=== PATIENT | female | born 1950 | race Two or more races ===

== ENCOUNTER → 2018-03-10 | Outpatient (CLI) | payer OTHER, MEDICAID ==
[~2018-03-10] MED LIST: ASPI-630 PO; LISI10TA2 PO; METF500T16 PO; NAPR-514 PO
[2018-03-10 13:03] LABS: BASO # 0.1 x10^3/uL (0.0-0.2); BASO % 1 % (0-3); EOS # 0.1 x10^3/uL (0.0-0.7); EOS % 2 % (0-3); HEMATOCRIT 38.7 % (36.0-47.0); HEMOGLOBIN 12.9 g/dL (12.0-15.5); LYMPH # 2.1 x10^3/uL (1.0-4.8); LYMPH % 24 % (24-48); MEAN CORPUSCULAR HEMOGLOBIN 28 pg (25-35); MEAN CORPUSCULAR HGB CONC 33 g/dL (31-37); MEAN CORPUSCULAR VOLUME 83 fL (79-100); MONO # 0.4 x10^3/uL (0.0-1.1); MONO % 5 % (0-9); NEUT # 6.2 x10^3uL (1.8-7.7); NEUT % 70 % (31-73); PLATELET COUNT 362 x10^3/uL (140-400); RED BLOOD COUNT 4.67 x10^6/uL (3.50-5.40); RED CELL DISTRIBUTION WIDTH 15.3 % (11.5-14.5); WHITE BLOOD COUNT 8.8 x10^3/uL (4.0-11.0)
[2018-03-10 13:04] LABS: BILIRUBIN,URINE NEGATIVE (NEG); CLARITY,URINE CLEAR; COLOR,URINE YELLOW; NITRITE,URINE NEGATIVE (NEG); PROTEIN,URINE NEGATIVE (NEG-TRACE); UROBILINOGEN,URINE 0.2 mg/dL (0.2 mg/dL)
[2018-03-10 13:10] LABS: RBC,URINE 0 /HPF (0-2)
[2018-03-10 13:11] LABS: BACTERIA,URINE FEW /HPF (0-FEW); WBC,URINE OCC /HPF (0-4)
[2018-03-10 13:12] LABS: PROTHROMBIN TIME PATIENT 12.6 SEC (11.7-14.0)
[2018-03-10 13:14] LABS: ALBUMIN 3.8 g/dL (3.4-5.0); CALCIUM 8.9 mg/dL (8.5-10.1); CREATININE 0.7 mg/dL (0.6-1.0); GFR 83.5; POTASSIUM 4.2 mmol/L (3.5-5.1)
--- NOTE | 2018-03-10 13:21 | EKG ---
[facility] [address] [place] [address] Test Date: 2018-03-10 Test Time: 12:27:16 Pat Name: RAFAELA JAMES Department: Room: Gender: F [employer] Controller: ABDIRAHMANShania : 1950 Requested By: SB PARTIDA Order Number: [id number] Reading MD: Leandro Mahmood Measurements Intervals [place] Rate: 65 P: 25 NE: 158 QRS: 15 QRSD: 74 T: 57 QT: 402 QTc: 419 Interpretive Statements SINUS RHYTHM NONSPECIFIC ST-T WAVE CHANGES. RI6.01 No previous ECG available for comparison Electronically Signed On 03-15-2018 16:20:54 CDT by Leandro Mahmood
--- NOTE | 2018-03-10 14:36 | RAD ---
Chest, 2 views, 03/10/2018: HISTORY: Preop evaluation for knee surgery The heart is at the upper limits of normal in size. The pulmonary vascularity is normal. No pulmonary infiltrate is seen. There is no evidence of pleural fluid. Moderate multilevel degenerative change is present in the spine. IMPRESSION: 1. Borderline cardiomegaly. 2. No acute abnormality is detected. Electronically signed by: Jarett Brian MD (03/10/2018 2:33 PM) [facility]
[2018-03-11 03:16] LABS: HEMOGLOBIN A1C 5.6 % (4.8-5.6)
== END | disposition home or self-care (01) ==
LOC: SURGPAT 12:11
PROVIDERS: ATTEND Orthopaedic Surgery Sports Medicine
DX: Z01.818 Encounter for other preprocedural examination (principal); M17.11 Unilateral primary osteoarthritis, right knee; M47.894 Other spondylosis, thoracic region
CPT/HCPCS: 36415; 71046; 80048; 81001; 82040; 83036; 85025; 85610; 85651; 85730; 87641; 93005

== ENCOUNTER 2018-03-22 07:30 | Inpatient (IN) | payer OTHER, MEDICAID ==
[~2018-03-22] VITALS: Ht 160 cm; Wt 91.6 kg
[2018-04-26] VITALS (8 sets, daily range): BP systolic 103–138; BP diastolic 64–81
[2018-04-26] MEDS ORDERED: TRANEXAMIC ACID 1,000 MG in IV NS 50ML -- 1ST BAG INJ ONE (06:00)
[2018-04-26] MEDS ORDERED: ACETAMINOPHEN 500 MG TABLET PO PRN (06:00)
[2018-04-26] MEDS ORDERED: TV=100ml MORPHINE 5 MG, KETOROLAC 30 MG, ROPIVacaine 0.5% PF 60 ML, EPINEPH... INT ART ONE ×5 (06:00)
[2018-04-26] MEDS ORDERED: HYDROcodone/APAP 7.5/325MG 1 TAB TABLET PO PRN ×2 (06:00→07:15)
[2018-04-26] MEDS ORDERED: MELOXICAM 7.5 MG TABLET PO PRN (06:00)
[2018-04-26] MEDS: IV RINGERS,LACTATED 1000ML 1,000 ML IV SCH ×2 (06:51→10:00)
[2018-04-26 06:56] LABS: PROTHROMBIN TIME PATIENT 12.8 SEC (11.7-14.0)
[2018-04-26] MEDS ORDERED: HYDROmorphone 2 MG/ML VIAL IV PRN (07:00)
[2018-04-26] MEDS ORDERED: ONDANSETRON PF 4 MG/2 ML VIAL. IV PRN (07:00)
[2018-04-26] MEDS ORDERED: fentaNYL PF VIAL 100 MCG/2 ML VIAL IV PRN ×5 (07:00→07:15)
[2018-04-26] MEDS ORDERED: MORPHINE SULFATE 2 MG/ML VIAL. IV PRN ×3 (07:00→07:15)
[2018-04-26] MEDS ORDERED: LIDOCAINE 1% PF 2 ML VIAL. ID PRN (07:00)
[2018-04-26] MEDS ORDERED: IV DEXTROSE 5 %-0.45 % NACL 1,000 ML IV SCH (07:02)
[2018-04-26] MEDS ORDERED: 0.9 % SODIUM CHLORIDE 10 ML DISP.SYRIN. IV PRN ×2 (07:15)
[2018-04-26] MEDS ORDERED: traMADol 50 MG TABLET PO PRN ×4 (07:15)
[2018-04-26] MEDS ORDERED: oxyCODONE/APAP 5/325 1 TAB TABLET PO PRN ×2 (07:15)
[2018-04-26] MEDS ORDERED: oxyCODONE/APAP 7.5/325 1 TAB TABLET PO PRN ×2 (07:15)
[2018-04-26] MEDS ORDERED: DEXTROSE 50% 25 GM / 50ML DISP.SYRIN. IV PRN ×3 (07:15)
[2018-04-26] MEDS ORDERED: PROCHLORPERAZINE 10 MG/2 ML VIAL. IV PRN ×2 (07:15)
[2018-04-26] MEDS ORDERED: ZOLPIDEM 5 MG TABLET. PO PRN ×2 (07:15)
[2018-04-26] MEDS ORDERED: diphenhydrAMINE 50 MG/ML VIAL IV PRN (07:15)
[2018-04-26] MEDS ORDERED: METOCLOPRAMIDE HCL 10 MG/2 ML VIAL. IV PRN ×2 (07:15)
[2018-04-26] MEDS ORDERED: MORPHINE SULFATE 10 MG/ML VIAL. IV PRN ×2 (07:15)
[2018-04-26] MEDS ORDERED: CALCIUM CARBONATE 500 MG TAB.CHEW PO PRN ×2 (07:15)
[2018-04-26] MEDS ORDERED: PROCHLORPERAZINE 5 MG TABLET. PO PRN ×2 (07:15)
[2018-04-26] MEDS ORDERED: MORPHINE SULFATE 4 MG/ML VIAL. IV PRN ×4 (07:15)
[2018-04-26] MEDS ORDERED: ACETAMINOPHEN 325 MG TABLET. PO PRN ×2 (07:15)
[2018-04-26] MEDS ORDERED: HYDROcodone/APAP 10/325 1 TAB TABLET PO PRN ×2 (07:15)
[2018-04-26] MEDS ORDERED: PROPOFOL 20 ML IV ONE (07:17)
[2018-04-26] MEDS ORDERED: LIDOCAINE 2% PF Vial for OR 5 ML VIAL. ONE (07:17)
[2018-04-26] MEDS ORDERED: MIDAZOLAM HCL/PF 2 MG/2 ML VIAL. ONE (07:17)
[2018-04-26] MEDS ORDERED: fentaNYL PF VIAL 250 MCG/5 ML VIAL ONE (07:17)
[2018-04-26 07:37] LABS: BILIRUBIN,URINE NEGATIVE (NEG); CLARITY,URINE CLOUDY; COLOR,URINE YELLOW; NITRITE,URINE NEGATIVE (NEG); PROTEIN,URINE NEGATIVE (NEG-TRACE)
[2018-04-26] MEDS ORDERED: SUCCINYLCHOLINE 200 MG/10 ML VIAL. ONE (07:37)
[2018-04-26 07:48] LABS: SQUAMOUS EPITHELIAL CELL,UR FEW /LPF
[2018-04-26 07:58] LABS: BACTERIA,URINE FEW /HPF (0-FEW); RBC,URINE OCC /HPF (0-2)
[2018-04-26] MEDS ORDERED: TRANEXAMIC ACID 1,000 MG in IV NS 50ML -- 2ND BAG INJ ONE (08:00)
[2018-04-26] MEDS ORDERED: FERROUS SULFATE 325 MG TABLET. PO SCH (08:00)
[2018-04-26] MEDS: INSULIN LISPRO 300 UNITS/3 ML INSULN.PEN. SQ SCH ×3 (08:00→16:59)
[2018-04-26] MEDS: SENNOSIDES/DOCUSATE 8.6/50MG TABLET. PO SCH (09:00)
[2018-04-26] MEDS ORDERED: SENNOSIDES/DOCUSATE 8.6/50MG TABLET. PO SCH (09:00)
[2018-04-26] MEDS: LISINOPRIL 10 MG TABLET PO SCH (09:00)
[2018-04-26] MEDS: MULTIVITAMIN with MINERAL TABLET. PO SCH (09:00)
[2018-04-26] MEDS ORDERED: MULTIVITAMIN with MINERAL TABLET. PO SCH (09:00)
[2018-04-26] MEDS ORDERED: SEVOFLURANE > 120 MINUTES. IH ONE (09:18)
[2018-04-26] MEDS ORDERED: DEXAMETHASONE SOD PHOS 20 MG/5 ML VIAL. ONE (09:18)
[2018-04-26] MEDS ORDERED: SEVOFLURANE 61 TO 120 MINUTES. IH ONE (09:18)
[2018-04-26] MEDS ORDERED: ONDANSETRON PF 4 MG/2 ML VIAL. ONE (09:18)
--- NOTE | 2018-04-26 09:42 | PDOC4 ---
Operative Note Operative Note Date of procedure: 04/26/2018 Surgeon: Uday Flores.: Ab Douglas APRN Preoperative diagnosis: Advanced right knee primary degenerative joint disease Postoperative diagnosis: Same Procedure performed: Right total knee arthroplasty Anesthesia: Gen. Tourniquet time: 52 minutes Blood loss: 100 mL Findings: Advanced primary degenerative joint disease of right knee Complications: None Components inserted: Peres and nephew size 5 bicruciate stabilized journey II cobalt chrome femur, size 3 tibial baseplate, 23 biconvex patella, 9 mm polyethylene insert Reason for procedure: Patient is very pleasant 67-year-old female who had tried and failed intra-articular injections, anti-inflammatories, and an assistive device as well as a rehabilitation program to alleviate her severe progressive right knee pain. We had a discussion of the risks, benefits, and alternatives with her family and they wish proceed with total knee arthroplasty. Description of procedure: Patient was greeted in the preoperative area by myself for the correct extremity was verified and marked. She was taken back to the operating room and her antibiotics were started as she was brought back. Once the operating room she was transferred gently supine to the operative room table and secured the bed with all pressure points padded after successful induction of a general anesthetic. Examination under anesthesia demonstrated needle stable to varus and valgus in extension and 30 of flexion. Range of motion was 0-130. Nonsterile tourniquet was applied and taped in place to her right thigh. Padded bump laterally at her hip and padded rest across the foot of the bed for her foot were attached to maintain her knee in 90 passively. Right lower extremity was then prepped and draped in our usual sterile fashion and we conducted our standard preoperative timeout. After this, I outpatient and marked surface anatomy and linda a line for my planned anterior midline skin incision. It should be noted an Ioban Chatham was used for this case as is my routine. After this, extremity exsanguinated with an Esmarch and tourniquet insufflated to 250 mmHg. Skin was incised a scalpel and subcutaneous tissue dissected with electrocautery. Bleeders were cauterized as a were encountered. Identified the quadriceps tendon, borders of the patella and patellar tendon as well as tibial tubercle. I made my standard medial parapatellar arthrotomy and then bluntly dissected the fat pad off the posterior patellar tendon and protected this while excised the fat pad. Medial release was performed with combination of Giraldo and electrocautery to approximately mid coronal plane. After this, the knee was flexed and I placed my Z retractors. I marked the Whitesides line and the epicondylar axis. I took down the cruciate ligaments. I gain entry into the distal femur with the drill, decompressing is entered. After this, I introduce my long intramedullary guide and impacted my distal femoral cutting block into position and secured it with 3 pins. I then made my distal femoral cut and removed the bony debris from the operative field. I then sized for my femur and then placed the pinholes to dileep the rotation for 51 cutting block and then impacted this into position and secured with threaded pins and then made my distal femoral cuts. The cutting block was removed as was the loose bony debris. I used the curved osteotome to palpate posteriorly to make sure I removed osteophytes there. After this, I placed my pickle fork retractor. I repositioned my Z retractors and then using the extra medullary tibial cutting guide and pinned this into place and then made my proximal tibial cut and deliver this bony remnant from the operative field. The retractors and extra medullary guide removed and the leg was brought out into extension. The menisci were excised, leaving a rim peripherally for later identification. After this, spacer block and drop ai confirmed good alignment and full extension. The knee was then flexed again and retractors positioned appropriately. I then sized and pinned my baseplate into position and then drilled and punched for the fins. I then placed my trial femoral component and then pinned this into place and then reamed and punched for the cam portion. The pin was removed and the trial box was inserted. A 9 mm and 10 mm articular insert were trialed, the 10 was a little too tight. She had full range of motion , 0-140 in the knee that was stable in extension and mid flexion with the 9 mm articular insert in place. I then directed my attention to the patella and sized and reamed for the 23 biconvex patella. She had excellent patellar tracking with all trial components in place. All trial components were then removed and the bony surfaces thoroughly irrigated. I then impacted my tibial component in place followed by my femur. Care was taken remove excess cement. Trial polyethylene was inserted and the cement was allowed to polymerize with the leg in extension. The patellar button was clamped and secured in place with cement as well. I then injected my periarticular mixture into the alonzo- incisional soft tissue envelope. After the cement was polymerize, I tested range of motion and stability again and was happy with it. The trial polyethylene articular insert was removed, the operative field was thoroughly irrigated again. After this, the 9 mm thick articular insert was inserted and locked in position, confirming that it was fully seated under direct visualization. Tourniquet was let down and bleeders were cauterized. She had a fair amount of oozing and so I placed a 1/8 inch Hemovac exiting superolaterally from her knee. Arthrotomy was closed with simple interrupted #1 Vicryl with the exception of a [id number]-abwhi proximally. Inverted interrupted 2-0 Vicryl in a multilayered fashion was used for closing subcutaneous tissue after arthrotomy closure was tested in flexion and no extravasation of blood noted. Running 4-0 Monocryl in a buried subcuticular fashion was used for skin. All counts correct 2 prior to wound closure. No complications. The leg was cleansed and dried and our incisional wound VAC was applied. Royer wrap was then applied. Patient tolerated surgery well. At the conclusion of surgery, she was awakened from anesthesia an transferred gently supine to the hospital bed. She was taken to the PACU in a stable and extubated condition. Postoperative plan is admit her to the joint center for DVT and antibiotic prophylaxis as well as begin her rehabilitation. UDAY PARTIDA II, MD Apr 26, 2018 09:42
[2018-04-26] MEDS: PROCHLORPERAZINE 10 MG/2 ML VIAL. IV PRN ×2 (10:22→10:52)
[2018-04-26] MEDS: fentaNYL PF VIAL 100 MCG/2 ML VIAL IV PRN ×3 (10:29→15:29)
--- NOTE | 2018-04-26 10:38 | RAD ---
Two-view right knee dated 04/26/2018. Comparison made to October 29, 2017. Clinical data indication: Post knee arthroplasty. FINDINGS: 2 views right knee show interval total knee of arthroplasty. Femoral and tibial components are intact. No periprosthetic fracture or malalignment. There are postsurgical changes of the patella. Diffuse soft tissue swelling and soft tissue gas with suprapatellar drain in place. IMPRESSION: Status post right knee arthroplasty. Electronically signed by: Gary Agrawal MD (04/26/2018 10:35 AM) [facility]
[2018-04-26] MEDS ORDERED: SCOPOLAMINE 1.5MG PATCH. TD SCH (11:15)
[2018-04-26] MEDS: IV DEXTROSE 5 %-0.45 % NACL 1,000 ML IV SCH ×2 (11:35→21:30)
[2018-04-26] MEDS: KETOROLAC 30MG VIAL 30 MG, BUPIVACAINE MPF 0.25% 20 ML, EPINEPHrine 0.5 MG in TOTAL VOL... INT ART SCH (12:07)
[2018-04-26] MEDS: WARFARIN 7.5 MG TABLET. PO ONE ×2 (15:28→21:05)
[2018-04-26] MEDS ORDERED: WARFARIN 7.5 MG TABLET. PO ONE (16:00)
[2018-04-26] MEDS: FERROUS SULFATE 325 MG TABLET. PO SCH (17:00)
[2018-04-26] MEDS ORDERED: KETOROLAC 30MG VIAL 30 MG, BUPIVACAINE MPF 0.25% 20 ML, EPINEPHrine 0.5 MG in TOTAL VOL... INT ART SCH (18:00)
[2018-04-26] MEDS ORDERED: CELECOXIB 100 MG CAPSULE. PO SCH (21:00)
[2018-04-26] MEDS: CELECOXIB 100 MG CAPSULE. PO SCH (21:05)
[2018-04-26] MEDS: metFORMIN 500 MG TABLET PO SCH (21:05)
[2018-04-26] MEDS: HYDROcodone/APAP 7.5/325MG 1 TAB TABLET PO PRN (21:31)
[2018-04-27] MEDS: IV DEXTROSE 5 %-0.45 % NACL 1,000 ML IV SCH (03:02)
[2018-04-27 03:09] VITALS: BP 111/70
[2018-04-27 05:20] LABS: HEMATOCRIT 30.1 % (36.0-47.0); HEMOGLOBIN 10.1 g/dL (12.0-15.5)
[2018-04-27 05:31] LABS: PROTHROMBIN TIME PATIENT 15.2 SEC (11.7-14.0)
[2018-04-27] MEDS ORDERED: MAGNESIUM HYDROXIDE 2,400 MG/30 ML ORAL.SUSP. PO PRN ×2 (06:00)
[2018-04-27] MEDS: KETOROLAC 30MG VIAL 30 MG, BUPIVACAINE MPF 0.25% 20 ML, EPINEPHrine 0.5 MG in TOTAL VOL... INT ART SCH (06:00)
[2018-04-27 07:05] VITALS: BP 124/73
[2018-04-27] MEDS: INSULIN LISPRO 300 UNITS/3 ML INSULN.PEN. SQ SCH ×3 (08:00→16:58)
[2018-04-27] MEDS: metFORMIN 500 MG TABLET PO SCH ×2 (08:01→16:56)
[2018-04-27] MEDS: FERROUS SULFATE 325 MG TABLET. PO SCH ×2 (08:01→16:56)
[2018-04-27] MEDS: CELECOXIB 100 MG CAPSULE. PO SCH ×2 (08:02→21:21)
[2018-04-27] MEDS: SENNOSIDES/DOCUSATE 8.6/50MG TABLET. PO SCH (08:02)
[2018-04-27] MEDS: MULTIVITAMIN with MINERAL TABLET. PO SCH (08:02)
[2018-04-27] MEDS: LISINOPRIL 10 MG TABLET PO SCH (08:03)
[2018-04-27] MEDS: HYDROcodone/APAP 7.5/325MG 1 TAB TABLET PO PRN ×2 (12:38→20:26)
--- NOTE | 2018-04-27 13:10 | PDOC ---
ORTHO PROGRESS NOTES Subjective She had a lot of nausea yesterday after surgery. It is getting better. She has been able to keep some food down. She has been ambulating and participating in PT. Vitals Vital Signs Date Time Temp Pulse Resp B/P (MAP) Pulse Ox O2 Delivery O2 Flow Rate FiO2 04/27/18 12:38 Nasal Cannula 04/27/18 08:03 62 124/73 04/27/18 07:05 98.4 16 96 98.4 04/26/18 20:12 2.0 Labs Laboratory Tests Test 04/26/18 06:35 04/26/18 06:44 04/26/18 07:10 04/26/18 10:40 Prothrombin Time 12.8 SEC (11.7-14.0) Prothromb Time International Ratio 1.0 (0.8-1.1) Activated Partial Thromboplast Time 27 SEC (24-38) Glucose (Fingerstick) 94 mg/dL (70-99) 156 mg/dL (70-99) Urine Collection Type Unknown Urine Color Yellow Urine Clarity Cloudy Urine pH 7.0 Urine Specific Deary 1.025 Urine Protein Negative mg/dL (NEG-TRACE) Urine Glucose (UA) Negative mg/dL (NEG) Urine Ketones (Stick) Negative mg/dL (NEG) Urine Blood Negative (NEG) Urine Nitrite Negative (NEG) Urine Bilirubin Negative (NEG) Urine Urobilinogen Dipstick 1.0 mg/dL (0.2 mg/dL) Urine Leukocyte Esterase Small (NEG) Urine RBC Occ /HPF (0-2) Urine WBC 1-4 /HPF (0-4) Urine Squamous Epithelial Cells Few /LPF Urine Bacteria Few /HPF (0-FEW) Urine Mucus Mod /LPF Test 04/26/18 21:03 04/27/18 04:50 04/27/18 06:36 04/27/18 10:47 Glucose (Fingerstick) 172 mg/dL (70-99) 111 mg/dL (70-99) 74 mg/dL (70-99) Hemoglobin 10.1 g/dL (12.0-15.5) Hematocrit 30.1 % (36.0-47.0) Mean Corpuscular Hemoglobin Concent 34 g/dL (31-37) Prothrombin Time 15.2 SEC (11.7-14.0) Prothromb Time International Ratio 1.3 (0.8-1.1) Laboratory Tests Test 04/26/18 21:03 04/27/18 04:50 04/27/18 06:36 04/27/18 10:47 Glucose (Fingerstick) 172 mg/dL (70-99) 111 mg/dL (70-99) 74 mg/dL (70-99) Hemoglobin 10.1 g/dL (12.0-15.5) Hematocrit 30.1 % (36.0-47.0) Mean Corpuscular Hemoglobin Concent 34 g/dL (31-37) Prothrombin Time 15.2 SEC (11.7-14.0) Prothromb Time International Ratio 1.3 (0.8-1.1) Notes She is awake and alert. Dressing is intact. Normal motor and sensation are present in her right lower extremity Assessment and Plan PT and OT, continue Coumadin, weight-bear as tolerated. Anti-nausea medications have been ordered. SB PARTIDA II, MD Apr 27, 2018 13:10
[2018-04-27] MEDS ORDERED: BISACODYL 10 MG SUPP.RECT. PR PRN ×2 (16:00)
[2018-04-27] MEDS ORDERED: WARFARIN 5 MG TABLET. PO ONE (16:00)
[2018-04-27 18:04] VITALS: BP 113/55
[2018-04-28 04:32] LABS: HEMATOCRIT 29.4 % (36.0-47.0); HEMOGLOBIN 9.7 g/dL (12.0-15.5)
[2018-04-28 04:45] LABS: PROTHROMBIN TIME PATIENT 18.5 SEC (11.7-14.0)
[2018-04-28 06:35] VITALS: BP 102/68
--- NOTE | 2018-04-28 07:44 | PDOC ---
ORTHO PROGRESS NOTES Subjective Patient with no new complaints this morning. Sitting up in chair at bedside. Post-op Day: 2 Procedure RTKA Vitals Vital Signs Date Time Temp Pulse Resp B/P (MAP) Pulse Ox O2 Delivery O2 Flow Rate FiO2 04/28/18 06:35 98.3 66 16 102/68 (79) 93 Room Air 98.3 Labs Laboratory Tests Test 04/26/18 10:40 04/26/18 21:03 04/27/18 04:50 04/27/18 06:36 Glucose (Fingerstick) 156 mg/dL (70-99) 172 mg/dL (70-99) 111 mg/dL (70-99) Hemoglobin 10.1 g/dL (12.0-15.5) Hematocrit 30.1 % (36.0-47.0) Mean Corpuscular Hemoglobin Concent 34 g/dL (31-37) Prothrombin Time 15.2 SEC (11.7-14.0) Prothromb Time International Ratio 1.3 (0.8-1.1) Test 04/27/18 10:47 04/27/18 16:41 04/27/18 20:54 04/28/18 04:05 Glucose (Fingerstick) 74 mg/dL (70-99) 94 mg/dL (70-99) 106 mg/dL (70-99) Hemoglobin 9.7 g/dL (12.0-15.5) Hematocrit 29.4 % (36.0-47.0) Mean Corpuscular Hemoglobin Concent 33 g/dL (31-37) Prothrombin Time 18.5 SEC (11.7-14.0) Prothromb Time International Ratio 1.6 (0.8-1.1) Test 04/28/18 06:23 Glucose (Fingerstick) 92 mg/dL (70-99) Laboratory Tests Test 04/27/18 10:47 04/27/18 16:41 04/27/18 20:54 04/28/18 04:05 Glucose (Fingerstick) 74 mg/dL (70-99) 94 mg/dL (70-99) 106 mg/dL (70-99) Hemoglobin 9.7 g/dL (12.0-15.5) Hematocrit 29.4 % (36.0-47.0) Mean Corpuscular Hemoglobin Concent 33 g/dL (31-37) Prothrombin Time 18.5 SEC (11.7-14.0) Prothromb Time International Ratio 1.6 (0.8-1.1) Test 04/28/18 06:23 Glucose (Fingerstick) 92 mg/dL (70-99) Assessment and Plan N/V intact distally dressing dry and intact moving toes and feet on request continue progression with PT FAYE PUENTE APRN Apr 28, 2018 07:44
[2018-04-28] MEDS: metFORMIN 500 MG TABLET PO SCH ×2 (08:00→17:00)
[2018-04-28] MEDS: INSULIN LISPRO 300 UNITS/3 ML INSULN.PEN. SQ SCH ×3 (08:00→17:00)
[2018-04-28 08:20] VITALS: BP 121/70
[2018-04-28] MEDS: FERROUS SULFATE 325 MG TABLET. PO SCH ×2 (08:23→16:59)
[2018-04-28] MEDS: SENNOSIDES/DOCUSATE 8.6/50MG TABLET. PO SCH (08:24)
[2018-04-28] MEDS: MULTIVITAMIN with MINERAL TABLET. PO SCH (08:24)
[2018-04-28] MEDS: CELECOXIB 100 MG CAPSULE. PO SCH ×2 (08:24→20:54)
[2018-04-28] MEDS: HYDROcodone/APAP 7.5/325MG 1 TAB TABLET PO PRN ×3 (08:25→20:55)
[2018-04-28] MEDS: LISINOPRIL 10 MG TABLET PO SCH (08:29)
[2018-04-28] MEDS ORDERED: WARFARIN 3 MG TABLET. PO ONE (16:00)
--- NOTE | 2018-04-28 16:12 | PATHOLOGY ---
[facility] Accession Number: [id number] . 01 Material submitted: . RIGHT KNEE BONE . 01 Clinical history: . Knee pain . 02 Diagnosis: Segments of bone and soft tissue, right total knee arthroplasty: - Advanced degenerative arthritis. . (JPM:vjm;04/28/2018) [facility]/04/28/2018 . 02 Electronically signed: . Bala Pool MD, Pathologist NPI- [id number] . 01 Gross description: . Received in formalin labeled "Shyann Saini, right knee bone," are multiple segments of bone, including tibial plateau, measuring 12.4 x 8.4 x 1.6 cm in aggregate dimensions. Scant soft tissue and possible meniscus are present. The specimen displays focal eburnation of the articular surfaces. Field Underwriter bone and soft tissue are submitted in cassette A1, following decalcification. (DAC; 04/27/2018) XDC/XDC . 02 Pathologist provided ICD-10: M17.11 . 02 CPT . 189366, 126415 Specimen Comment: A courtesy copy of this report has been sent to Specimen Comment: [phone], . Specimen Comment: Report sent to / DR CARRILLO Performed at: 01 [facility] [address] [facility] [place], [place] [id number] MD Mando Joyce MD Phone: [phone] Performed at: 02 [facility] [address] [place], [place] [id number] MD Bala Pool MD Phone: [phone]
[2018-04-28 18:15] VITALS: BP 115/66
[2018-04-29 04:54] LABS: HEMATOCRIT 30.2 % (36.0-47.0); HEMOGLOBIN 10.1 g/dL (12.0-15.5)
[2018-04-29] MEDS: HYDROcodone/APAP 7.5/325MG 1 TAB TABLET PO PRN ×3 (05:45→19:27)
[2018-04-29 05:51] VITALS: BP 123/58
[2018-04-29] MEDS: INSULIN LISPRO 300 UNITS/3 ML INSULN.PEN. SQ SCH ×3 (08:00→16:45)
[2018-04-29] MEDS: MULTIVITAMIN with MINERAL TABLET. PO SCH (08:11)
[2018-04-29] MEDS: FERROUS SULFATE 325 MG TABLET. PO SCH ×2 (08:11→16:44)
[2018-04-29] MEDS: metFORMIN 500 MG TABLET PO SCH ×2 (08:11→16:43)
[2018-04-29] MEDS: SENNOSIDES/DOCUSATE 8.6/50MG TABLET. PO SCH (08:12)
[2018-04-29] MEDS: CELECOXIB 100 MG CAPSULE. PO SCH ×2 (08:12→21:03)
[2018-04-29] MEDS: LISINOPRIL 10 MG TABLET PO SCH (09:00)
--- NOTE | 2018-04-29 09:09 | DISCH ---
DISCHARGE INSTRUCTIONS Condition on Discharge Condition on Discharge: Stable Activity After Discharge Activity Instructions for Disc: Other ROM activity Bathing Instructions: Shower-keep dressing dry Weight Bearing Status after Di: As tolerated Diet after Discharge Diet after Discharge: Regular Wound Incision Care Wound/Incision Care: Ice to area for comfort, Keep wound/cast CDI, Do not change dressing Contacting the DRJanki after DC Call your doctor for: Concerns you may have Follow-Up Follow up with: [facility] in 2 wks Warfarin Follow-Up Warfarin Follow UP: per pharmacy SB PARTIDA II, MD Apr 29, 2018 09:09
--- NOTE | 2018-04-29 09:20 | PDOC ---
ORTHO PROGRESS NOTES Subjective Pain tolerable, eye redness. Abd ok Vitals Vital Signs Date Time Temp Pulse Resp B/P (MAP) Pulse Ox O2 Delivery O2 Flow Rate FiO2 04/29/18 06:45 Room Air 04/29/18 05:51 98.0 70 20 123/58 (79) 95 98.0 Labs Laboratory Tests Test 04/27/18 10:47 04/27/18 16:41 04/27/18 20:54 04/28/18 04:05 Glucose (Fingerstick) 74 mg/dL (70-99) 94 mg/dL (70-99) 106 mg/dL (70-99) Hemoglobin 9.7 g/dL (12.0-15.5) Hematocrit 29.4 % (36.0-47.0) Mean Corpuscular Hemoglobin Concent 33 g/dL (31-37) Prothrombin Time 18.5 SEC (11.7-14.0) Prothromb Time International Ratio 1.6 (0.8-1.1) Test 04/28/18 06:23 04/28/18 11:31 04/28/18 16:22 04/29/18 04:35 Glucose (Fingerstick) 92 mg/dL (70-99) 96 mg/dL (70-99) 112 mg/dL (70-99) Hemoglobin 10.1 g/dL (12.0-15.5) Hematocrit 30.2 % (36.0-47.0) Mean Corpuscular Hemoglobin Concent 34 g/dL (31-37) Prothrombin Time 17.0 SEC (11.7-14.0) Prothromb Time International Ratio 1.4 (0.8-1.1) Test 04/29/18 05:43 Glucose (Fingerstick) 91 mg/dL (70-99) Laboratory Tests Test 04/28/18 11:31 04/28/18 16:22 04/29/18 04:35 04/29/18 05:43 Glucose (Fingerstick) 96 mg/dL (70-99) 112 mg/dL (70-99) 91 mg/dL (70-99) Hemoglobin 10.1 g/dL (12.0-15.5) Hematocrit 30.2 % (36.0-47.0) Mean Corpuscular Hemoglobin Concent 34 g/dL (31-37) Prothrombin Time 17.0 SEC (11.7-14.0) Prothromb Time International Ratio 1.4 (0.8-1.1) Notes A and A She sitting in a chair eating breakfast. Dressing is intact. Normal motor and sensation are present in her leg. Assessment and Plan She can be transferred today. Okay to weight-bear as tolerated. Coumadin per pharmacy. SB PARTIDA II, MD Apr 29, 2018 09:20
--- NOTE | 2018-04-29 09:22 | PDOC3 ---
Discharge Summary Visit Information Date of Admission: Apr 26, 2018 Date of Discharge: Apr 29, 2018 Admitting Diagnosis: advanced right knee primary degenerative joint disease Brief Hospital Course Allergies Allergies Coded Allergies Type Severity Reaction Last Updated Verified No Known Drug Allergies 04/26/18 No Vital Signs Vital Signs Date Time Temp Pulse Resp B/P (MAP) Pulse Ox O2 Delivery O2 Flow Rate FiO2 04/29/18 06:45 Room Air 04/29/18 05:51 98.0 70 20 123/58 (79) 95 98.0 Lab Results Laboratory Tests Test 04/27/18 10:47 04/27/18 16:41 04/27/18 20:54 04/28/18 04:05 Glucose (Fingerstick) 74 mg/dL (70-99) 94 mg/dL (70-99) 106 mg/dL (70-99) Hemoglobin 9.7 g/dL (12.0-15.5) Hematocrit 29.4 % (36.0-47.0) Mean Corpuscular Hemoglobin Concent 33 g/dL (31-37) Prothrombin Time 18.5 SEC (11.7-14.0) Prothromb Time International Ratio 1.6 (0.8-1.1) Test 04/28/18 06:23 04/28/18 11:31 04/28/18 16:22 04/29/18 04:35 Glucose (Fingerstick) 92 mg/dL (70-99) 96 mg/dL (70-99) 112 mg/dL (70-99) Hemoglobin 10.1 g/dL (12.0-15.5) Hematocrit 30.2 % (36.0-47.0) Mean Corpuscular Hemoglobin Concent 34 g/dL (31-37) Prothrombin Time 17.0 SEC (11.7-14.0) Prothromb Time International Ratio 1.4 (0.8-1.1) Test 04/29/18 05:43 Glucose (Fingerstick) 91 mg/dL (70-99) Laboratory Tests Test 04/28/18 11:31 04/28/18 16:22 04/29/18 04:35 04/29/18 05:43 Glucose (Fingerstick) 96 mg/dL (70-99) 112 mg/dL (70-99) 91 mg/dL (70-99) Hemoglobin 10.1 g/dL (12.0-15.5) Hematocrit 30.2 % (36.0-47.0) Mean Corpuscular Hemoglobin Concent 34 g/dL (31-37) Prothrombin Time 17.0 SEC (11.7-14.0) Prothromb Time International Ratio 1.4 (0.8-1.1) Brief Hospital Course Ms. Christiane Gómez is a 67 old female who presented to my outpatient orthopedic surgery clinic with complaints of severe and progressive pain that failed conservative therapies including injections. We had a discussion of the risks, benefits, alternatives to total knee arthroplasty and she elected to proceed. She tolerated surgery well and recovered well from anesthesia in the PACU. She was then taken to the joint Center for care and observation. She did receive PT, OT, DVT and antibiotic prophylaxis. She recovered well from surgery and remained hemodynamically stable and afebrile throughout the hospitalization. Pain was controlled on oral pain medicine at the time of discharge. Good progress was made with therapy throughout the hospitalization, and activities of daily living were accomplished by the patient. The incision was clean dry and intact and the operative extremity had normal motor and sensation. Discharge Information Condition at Discharge: Stable Follow Up: Weeks Disposition/Orders: D/C to Another Facility Scheduled Aspirin (Aspirin) 81 Mg Tab.chew, 1 TAB PO DAILY, #30 Ref 3 (Reported) Entered as Reported by: FLORENTINO GONZALEZ on 03/10/18 1304 Last Taken: Unknown Dose on 03/26/18 Last Action: HELD on 04/26/18708 by DUKE PARTIDA MD Lisinopril (Lisinopril) 10 Mg Tablet, 1 TAB PO DAILY, #30 Ref 5 (Reported) Entered as Reported by: FLORENTINO GONZALEZ on 03/10/18 1302 Last Taken: Unknown Dose on 04/25/18 Last Action: Continued on 04/26/18708 by DUKE PARTIDA MD Metformin Hcl (Metformin Hcl) 500 Mg Tablet, 500 MG PO BIDWMEALS for ANTI- DIABETIC, Ref 0 (Reported) Entered as Reported by: FLORENTINO GONZALEZ on 03/10/18 1303 Last Taken: Unknown Dose on 04/25/18 Last Action: Converted on 04/26/18708 by DUKE PARTIDA MD Naproxen (Naproxen) 500 Mg Tablet, 1 TAB PO BID, #60 Ref 1 (Reported) Entered as Reported by: FLORENTINO GONZALEZ on 03/10/18 6837 Last Taken: Unknown Dose on 03/26/18 Last Action: HELD on 04/26/18 07 by DUKE PARTIDA MD Patient Instructions Patient Instructions She'll be transferred to a rehabilitation facility. We will get her started on outpatient therapy as soon as we are able. The patient will be on Coumadin for a month. She can weight-bear as tolerated. Worrisome signs and symptoms that should prompt a phone call to my office were discussed. We'll see her back in 2 weeks, sooner should a problem arise. SB PARTIDA II, MD Apr 29, 2018 09:22
[2018-04-29] MEDS ORDERED: WARFARIN 5 MG TABLET. PO ONE (14:00)
--- NOTE | 2018-04-29 14:41 | DISCH ---
DISCHARGE INSTRUCTIONS Condition on Discharge Condition on Discharge: Stable Activity After Discharge Activity Instructions for Disc: Other ROM activity Bathing Instructions: Shower-keep dressing dry Weight Bearing Status after Di: As tolerated Diet after Discharge Diet after Discharge: Regular Wound Incision Care Wound/Incision Care: Ice to area for comfort, Keep wound/cast CDI, Do not change dressing Community/Resources/Services Services at Discharge: PT EVALUATE & TREAT, OT Evaluate & Treat Contacting the DR. after DC Call your doctor for: Concerns you may have Follow-Up Follow up with: [facility] in 2 wks Warfarin Follow-Up Warfarin Follow UP: per pharmacy SB PARTIDA II, MD Apr 29, 2018 14:41
[2018-04-29 17:58] VITALS: BP 121/63
[2018-04-30 06:00] VITALS: BP 133/65
[2018-04-30] MEDS: HYDROcodone/APAP 7.5/325MG 1 TAB TABLET PO PRN (06:21)
[2018-04-30 07:54] LABS: PROTHROMBIN TIME PATIENT 15.5 SEC (11.7-14.0)
[2018-04-30] MEDS: metFORMIN 500 MG TABLET PO SCH (08:00)
[2018-04-30] MEDS: FERROUS SULFATE 325 MG TABLET. PO SCH (08:00)
[2018-04-30] MEDS: INSULIN LISPRO 300 UNITS/3 ML INSULN.PEN. SQ SCH ×2 (08:00→11:51)
--- NOTE | 2018-04-30 08:24 | PDOC ---
ORTHO PROGRESS NOTES Subjective She is awaiting insurance approval for placement. Her pain has been tolerable. no complaints. Vitals Vital Signs Date Time Temp Pulse Resp B/P (MAP) Pulse Ox O2 Delivery O2 Flow Rate FiO2 04/30/18 06:21 Room Air 04/30/18 06:00 98.2 70 16 133/65 (87) 96 98.2 Labs Laboratory Tests Test 04/28/18 11:31 04/28/18 16:22 04/29/18 04:35 04/29/18 05:43 Glucose (Fingerstick) 96 mg/dL (70-99) 112 mg/dL (70-99) 91 mg/dL (70-99) Hemoglobin 10.1 g/dL (12.0-15.5) Hematocrit 30.2 % (36.0-47.0) Mean Corpuscular Hemoglobin Concent 34 g/dL (31-37) Prothrombin Time 17.0 SEC (11.7-14.0) Prothromb Time International Ratio 1.4 (0.8-1.1) Test 04/29/18 11:38 04/29/18 16:38 04/30/18 06:30 04/30/18 06:57 Glucose (Fingerstick) 79 mg/dL (70-99) 115 mg/dL (70-99) 104 mg/dL (70-99) Prothrombin Time 15.5 SEC (11.7-14.0) Prothromb Time International Ratio 1.3 (0.8-1.1) Laboratory Tests Test 04/29/18 11:38 04/29/18 16:38 04/30/18 06:30 04/30/18 06:57 Glucose (Fingerstick) 79 mg/dL (70-99) 115 mg/dL (70-99) 104 mg/dL (70-99) Prothrombin Time 15.5 SEC (11.7-14.0) Prothromb Time International Ratio 1.3 (0.8-1.1) Notes Awake and alert She is sitting in chair eating breakfast. Dressing is intact and dry. Normal motor and sensation is present in her leg. Assessment and Plan She will go to [facility] once insurance has approved up. Weight-bear as tolerated. Coumadin for a month. SB PARTIDA II, MD Apr 30, 2018 08:24
[2018-04-30] MEDS: SENNOSIDES/DOCUSATE 8.6/50MG TABLET. PO SCH (09:00)
[2018-04-30] MEDS: CELECOXIB 100 MG CAPSULE. PO SCH (09:00)
[2018-04-30] MEDS: LISINOPRIL 10 MG TABLET PO SCH (09:00)
[2018-04-30] MEDS: MULTIVITAMIN with MINERAL TABLET. PO SCH (09:00)
[2018-04-30] MEDS ORDERED: WARFARIN 6 MG TABLET. PO ONE (14:30)
[2018-04-30 14:55] VITALS: BP 124/68
[2018-05-01] MEDS ORDERED: WARFARIN 5 MG TABLET. PO SCH (16:00)
== END 2018-04-30 15:30 | disposition home or self-care (01) | DRG 470 ==
LOC: OPSVCIP 04-26 05:44 → OBSVTOIN 04-26 07:07 → 4 SOUTHEST 04-26 11:20
PROVIDERS: ADMIT Orthopaedic Surgery Sports Medicine; ATTEND Orthopaedic Surgery Sports Medicine
PROC: 0SRC0J9 Replacement of Right Knee Joint with Synthetic Substitute, Cemented, Open Approach (ICD-10-PCS; principal; 2018-04-26 07:30)
DX: M17.11 Unilateral primary osteoarthritis, right knee (principal); Z79.01 Long term (current) use of anticoagulants; Z79.899 Other long term (current) drug therapy
CPT/HCPCS: 36415; 73560; 81001; 82962; 85014; 85018; 85610; 85730; 86850; 86900; 86901; 87086; 88305; 88311; A7015; C1713; G0379; J0171; J0330; J0690; J0780; J1100; J1815; J1885; J2001; J2250; J2270; J2405; J2704; J2765; J2795; J3010; J7030; J7120; 97110; 97116; 97150; 97530; 97535; C1769

== ENCOUNTER → 2019-08-24 | Outpatient (CLI) | payer MEDICARE, MEDICAID ==
[~2019-08-24] MED LIST changes: +NAPR500T8 PO
--- NOTE | 2019-08-24 13:28 | EKG ---
[facility] [address] [place] [address] Test Date: 2019-08-24 Test Time: 13:24:56 Pat Name: RAFAELA BUITRAGODepartment: Room: Gender: F Architectural Draftsperson: : 1950 Requested By: SB PARTIDA Order Number: [id number] Reading MD: Tulio Sanchez Measurements Intervals [place] Rate: 72 P: 31 MD: 158 QRS: 0 QRSD: 78 T: 54 QT: 398 QTc: 437 Interpretive Statements SINUS RHYTHM LEFTWARD AXIS Electronically Signed On 08-25-2019 8:28:05 CROP PICKER by Tulio Sanchez
--- NOTE | 2019-08-24 15:32 | RAD ---
AP and Lateral Views of the Chest 08/24/2019 1:10 PM Indication: Preoperative Comparison: chest radiograph March 10, 2018 Findings: There is no focal consolidation or infiltrate identified. The cardiomediastinal silhouette is within normal limits. There is no evidence of pneumothorax or pleural effusion. Degenerative changes of the thoracic spine noted. No acute osseous changes are identified pneumothorax. Impression: No evidence of acute cardiopulmonary process. Electronically signed by: Geronimo Pimentel MD (08/24/2019 3:29 PM) [id number]
== END ==
LOC: SURGPAT 12:20
PROVIDERS: ATTEND Orthopaedic Surgery Sports Medicine
DX: Z01.818 Encounter for other preprocedural examination (principal); M17.12 Unilateral primary osteoarthritis, left knee
CPT/HCPCS: 36415; 71046; 87641; 93005

== ENCOUNTER → 2019-12-07 | Outpatient (CLI) | payer MEDICARE, MEDICAID ==
[~2019-12-07] MED LIST changes: +OXYC-325 PO; +OXYC1TAB15 PO; +SIMV20TA18 PO; +WARF5TAB2 PO
[2019-12-08 11:12] LABS: HEMOGLOBIN A1C 6.3
[2019-12-08 11:14] LABS: BASO % 0 % (0-3); EOS # 0.1 x10^3/uL (0.0-0.7); EOS % 2 % (0-3); HEMATOCRIT 36.2 % (36.0-47.0); HEMOGLOBIN 12.2 g/dL (12.0-15.5); LYMPH # 1.6 x10^3/uL (1.0-4.8); LYMPH % 21 % (24-48); MEAN CORPUSCULAR HEMOGLOBIN 28 pg (25-35); MEAN CORPUSCULAR HGB CONC 34 g/dL (31-37); MEAN CORPUSCULAR VOLUME 84 fL (79-100); MONO # 0.5 x10^3/uL (0.0-1.1); MONO % 7 % (0-9); NEUT # 5.3 x10^3/uL (1.8-7.7); NEUT % 70 % (31-73); PLATELET COUNT 310 x10^3/uL (140-400); RED BLOOD COUNT 4.34 x10^6/uL (3.50-5.40); RED CELL DISTRIBUTION WIDTH 15.2 % (11.5-14.5); WHITE BLOOD COUNT 7.5 x10^3/uL (4.0-11.0)
[2019-12-08 11:16] LABS: PROTHROMBIN TIME PATIENT 12.7 SEC (11.7-14.0)
[2019-12-08 11:17] LABS: ALBUMIN 3.4 g/dL (3.4-5.0); CALCIUM 8.6 mg/dL (8.5-10.1)
== END ==
LOC: SURGPAT 13:16
PROVIDERS: ATTEND Orthopaedic Surgery Sports Medicine
DX: Z01.818 Encounter for other preprocedural examination (principal); Z11.59 Encounter for screening for other viral diseases; M17.12 Unilateral primary osteoarthritis, left knee
CPT/HCPCS: 36415; 80048; 82040; 82306; 83036; 85025; 85610; 85730; 86141; 87641; U0003